=== PATIENT | female | born 1970 | race Caucasian/White ===

== ENCOUNTER 2016-11-16 15:52 | Outpatient (CLI) ==
[2014-09-12 22:22] VITALS: BMI 29.0
[2016-11-16 17:02] LABS: FLU INTERNAL QC INTERNAL QC VALID; RAPID FLU A NEGATIVE (NEGATIVE); RAPID FLU B NEGATIVE (NEGATIVE)
== END 2016-11-16 15:53 | disposition home or self-care (01) ==
LOC: LAB 15:52
PROVIDERS: ATTEND Nurse Practitioner Family
DX: J02.9 Acute pharyngitis, unspecified (principal)
CPT/HCPCS: 87651; 87804; 87880

== ENCOUNTER 2017-07-06 09:04 | Outpatient (CLI) ==
[2014-09-12 22:22] VITALS: BMI 29.0
== END 2017-07-06 09:05 | disposition home or self-care (01) ==
LOC: RAD 09:04
PROVIDERS: ATTEND Advanced Practice Midwife
DX: Z12.31 Encounter for screening mammogram for malignant neoplasm of breast (principal)
CPT/HCPCS: 77067

== ENCOUNTER 2017-12-26 10:44 | Outpatient (CLI) ==
[2014-09-12 22:22] VITALS: BMI 29.0
== END 2017-12-26 10:45 | disposition home or self-care (01) ==
LOC: LAB 10:44
PROVIDERS: ATTEND Internal Medicine Hematology & Oncology
DX: D50.9 Iron deficiency anemia, unspecified (principal)
CPT/HCPCS: 36415; 80053; 82607; 82728; 83540; 83550; 85025

== ENCOUNTER 2018-02-21 08:32 | Outpatient (POV) ==
[2014-09-12 22:22] VITALS: BMI 29.0
== END 2018-02-21 17:00 ==
LOC: OUTPT 08:32
PROVIDERS: ATTEND Otolaryngology
DX: H91.90 Unspecified hearing loss, unspecified ear (principal)